=== PATIENT | female | born 1980 | race Caucasian/White ===

== ENCOUNTER → 2018-03-10 10:45 | Outpatient (CLI) | payer OTHER, SELFPAY ==
[2018-03-10 11:38] LABS: Hematocrit 40.4 % (37-47); Hemoglobin 13.3 g/dl (12.0-15.0); Mean Corp Hgb Conc 32.9 g/gl (32-36); Mean Corpuscular Hgb 27.4 pg (27.0-32.0); Mean Corpuscular Volume 83.3 fL (81-99); Mean Platelet Vol. 11.6 fl (6.2-12.0); Platelet Count 246 K/mm3 (150-450); RBC Distribution Width SD 42.5 fl (35.1-43.9); Red Blood Count 4.85 M/mm3 (4.2-5.4); White Blood Count 4.6 K/mm3 (4.4-11.0)
[2018-03-10 11:40] LABS: Scan Indicated on CBC? Y/N NO
[2018-03-10 11:59] LABS: PTHIN 83.7 pg/mL (18.4-80.1)
[2018-03-10 12:00] LABS: Vitamin B12 574 pg/mL (211-911); Vitamin D,25 Hydroxy 19.7 ng/mL (29.95-100.01)
[2018-03-10 12:04] LABS: Homocysteine 6.9 umol/L (3.2-10.7)
[2018-03-10 12:15] LABS: ALB/GLOB Ratio 1.2 RATIO (0.9-2.4); AST(SGOT) 13 U/L (15-37); Alanine Aminotransfer ALT/SGPT 20 U/L (13-56); Albumin, Serum 3.7 g/dL (3.2-5.0); Alkaline Phosphatase 81 U/L (45-117); Anion Gap 6 (5-15); BUN 14 mg/dL (7-18); BUN/Creat Ratio 20.5 RATIO (10-20); CRP < 2.90 mg/L (0.0-3.0); Calcium,Total 8.8 mg/dL (8.5-10.1); Chloride 109 mmol/L (98-107); Cholesterol 165 mg/dL (200); Creatinine, Serum 0.68 mg/dL (0.55-1.02); EST Glomerular Filtration Rate 101 mL/min (>60); Est Glom Filt Rate - Afr Amer 123 mL/min (>60); Ferritin 127 ng/mL (8-252); Globulin 3.1 g/dL (2.2-4.2); Glucose 89 mg/dL (74-106); High Density Lipoprotein 59 mg/dL; Iron 86 ug/dL (50-170); Iron Binding Capacity,Total 295 ug/dL (250-450); Magnesium 2.2 mg/dL (1.6-2.6); Phosphorus 3.7 mg/dL (2.5-4.9); Potassium 3.8 mmol/L (3.5-5.1); Protein, Total 6.8 g/dL (6.4-8.2); Sodium Level 143 mmol/L (136-145); Thyroid Stim Hormone (TSH) 1.32 uIU/mL (0.358-3.74); Triglycerides 76 mg/dL; Very Low Density Lipoprotein 15 mg/dL (5-40)
[2018-03-10 12:57] LABS: Erythrocyte Sedimentation Rate < 1 mm/hr (0-20)
[2018-03-14 11:09] LABS: ANTINUCLEAR ANTIBODIES DIRECT Negative (Negative)
== END ==
PROVIDERS: Family Provider Internal Medicine; PCP Internal Medicine; Visit Provider Internal Medicine
DX: E53.8 Deficiency of other specified B group vitamins (principal); E61.1 Iron deficiency; E55.9 Vitamin D deficiency, unspecified; R53.83 Other fatigue; F41.9 Anxiety disorder, unspecified; K91.2 Postsurgical malabsorption, not elsewhere classified
CPT/HCPCS: 36415; 80053; 80061; 82306; 82607; 82728; 82746; 83090; 83540; 83550; 83735; 83970; 84100; 84443; 84590; 84630; 85027; 85652; 86038; 86140

== ENCOUNTER → 2018-03-17 07:21 | Outpatient (CLI) | payer OTHER, SELFPAY ==
--- NOTE | 2018-03-17 07:24 | CT_ITS ---
STUDY: CT BRAIN WITH AND WITHOUT CONTRAST REASON FOR EXAM: Female, 37 years old. Intractable migraines x3 months that are worsening. History of iron deficiency anemia. RADIATION DOSAGE (If Supplied By Facility): CTDIvol = ( 44.99 ) mGy, DLP = ( 1445.99 ) mGycm TECHNIQUE: Transaxial CT imaging of the brain was performed pre and post contrast administration. The examination was performed with intravenous administration of 50 ml of Isovue 300 contrast material. Individualized dose optimization techniques were used for this CT. COMPARISON: None. FINDINGS: Normal soft tissue structures. Normal calvarium. Normal size ventricles and extra-axial spaces for the patient's age. Normal white matter tracts of the cerebral hemispheres. Normal basal ganglia and thalami. Normal brainstem. Normal cerebellum. There is no intracranial hemorrhage. There are no findings of an acute ischemic infarction. There is a potential air-fluid level within the dependent left maxillary sinus. CT/Brain/Head W/WO Contrast IMPRESSION: No CT evident acute intracranial pathology. Left maxillary nonspecific sinus disease. Air-fluid level may suggest an acute process. Advise clinical correlation. Electronically Signed: Mian Garcia MD at 8:48 EDT , Service support ,
== END ==
PROVIDERS: Family Provider Internal Medicine; PCP Internal Medicine; Visit Provider Internal Medicine
DX: G43.911 Migraine, unspecified, intractable, with status migrainosus (principal)
CPT/HCPCS: 70470; Q9967

== ENCOUNTER → 2018-05-22 14:40 | Outpatient (CLI) | payer OTHER, SELFPAY ==
[2018-05-22 16:36] LABS: Absolute Lymphocyte Count 2.24 X10^3/ul (0.83-4.51); Absolute Neutrophil Count 4.5 X10^3/uL (2.0-7.7); Basophil# 0.04 X10^3/uL; Basophil% 0.5 % (0-1); Eosinophil# 0.25 X10^3/uL; Eosinophils% 3.3 % (0-5); Hematocrit 43.5 % (37-47); Hemoglobin 14.2 g/dl (12.0-15.0); Lymphocyte # 2.24 X10^3/ul (4.0); Lymphocyte % 29.7 % (19-41); Mean Corp Hgb Conc 32.6 g/gl (32-36); Mean Corpuscular Hgb 27.5 pg (27.0-32.0); Mean Corpuscular Volume 84.1 fL (81-99); Mean Platelet Vol. 12.4 fl (6.2-12.0); Monocyte# 0.47 X10^3/uL; Monocyte% 6.2 % (0-10); Neutrophil # 4.53 X10^3/uL (2.7-7.7); Neutrophil % 60.2 % (47-70); Platelet Count 259 K/mm3 (150-450); RBC Distribution Width CV 14.2 % (11.6-14.6); RBC Distribution Width SD 43.2 fl (35.1-43.9); Red Blood Count 5.17 M/mm3 (4.2-5.4); White Blood Count 7.5 K/mm3 (4.4-11.0)
[2018-05-22 16:54] LABS: POSITIVE COUNT NO; POSITIVE DIFFERENTIAL NO; POSITIVE MORPHOLOGY NO
[2018-05-22 17:09] LABS: Vitamin B12 394 pg/mL (211-911); Vitamin D,25 Hydroxy 12.6 ng/mL (29.95-100.01)
[2018-05-22 17:14] LABS: Erythrocyte Sedimentation Rate 2 mm/hr (0-20)
[2018-05-22 17:24] LABS: Homocysteine 6.4 umol/L (3.2-10.7)
[2018-05-22 17:25] LABS: ALB/GLOB Ratio 1.1 RATIO (0.9-2.4); AST(SGOT) 18 U/L (15-37); Alanine Aminotransfer ALT/SGPT 29 U/L (13-56); Albumin, Serum 3.5 g/dL (3.2-5.0); Alkaline Phosphatase 83 U/L (45-117); Anion Gap 7 (5-15); BUN 16 mg/dL (7-18); BUN/Creat Ratio 26.2 RATIO (10-20); CRP < 2.90 mg/L (0.0-3.0); Calcium,Total 8.8 mg/dL (8.5-10.1); Chloride 107 mmol/L (98-107); Cholesterol 149 mg/dL (200); Creatinine, Serum 0.61 mg/dL (0.55-1.02); EST Glomerular Filtration Rate 115 mL/min (>60); Est Glom Filt Rate - Afr Amer 140 mL/min (>60); Ferritin 87 ng/mL (8-252); Globulin 3.3 g/dL (2.2-4.2); Glucose 82 mg/dL (74-106); High Density Lipoprotein 62 mg/dL; Iron 72 ug/dL (50-170); Iron Binding Capacity,Total 316 ug/dL (250-450); Magnesium 1.9 mg/dL (1.6-2.6); PERCENT IRON SATURATION 22.8 % (15.0-55.0); Phosphorus 2.8 mg/dL (2.5-4.9); Potassium 3.6 mmol/L (3.5-5.1); Protein, Total 6.8 g/dL (6.4-8.2); Sodium Level 143 mmol/L (136-145); Thyroid Stim Hormone (TSH) 0.93 uIU/mL (0.358-3.74); Triglycerides 84 mg/dL; Very Low Density Lipoprotein 17 mg/dL (5-40)
[2018-05-22 17:37] LABS: PTHIN 52.6 pg/mL (18.4-80.1)
[2018-05-25 15:59] LABS: ANTINUCLEAR ANTIBODIES DIRECT Negative (Negative)
[2018-05-29 10:02] LABS: Vitamin A, Retinol 34.6 ug/dL (31.2-89.1); Zinc, Plasma or Serum 78 ug/dL (56-134)
== END ==
PROVIDERS: Family Provider Internal Medicine; PCP Internal Medicine; Visit Provider Internal Medicine
DX: E53.8 Deficiency of other specified B group vitamins (principal); E61.1 Iron deficiency; E55.9 Vitamin D deficiency, unspecified; R53.83 Other fatigue; F41.9 Anxiety disorder, unspecified; K91.2 Postsurgical malabsorption, not elsewhere classified
CPT/HCPCS: 36415; 80053; 80061; 82306; 82607; 82728; 82746; 83090; 83540; 83550; 83735; 83970; 84100; 84443; 84590; 84630; 85025; 85652; 86038; 86140

== ENCOUNTER → 2018-07-28 10:49 | Outpatient (CLI) | payer OTHER, SELFPAY ==
[2018-07-28 12:09] LABS: Color, Urine Yellow (Yellow); Glucose, Dipstick Normal (Normal); Ketone-Dipstick 5 mg/dl (Negative); Leukocyte Esterase-Dipstick 25 /ul (Negative); Nitrite-Dipstick Negative (Negative); Occult Blood-Urine Negative /ul (Negative); Protein-Dipstick Negative (Negative); Specific Gravity, Urine 1.025 (1.002-1.030); Urine Bilirubin Dipstick Negative (Negative); Urine Clarity Clear (Clear); Urine Urobilinogen 1 mg/dl (Normal)
[2018-07-28 12:10] LABS: Absolute Lymphocyte Count 2.04 X10^3/ul (0.83-4.51); Basophil# 0.04 X10^3/uL; Basophil% 0.7 % (0-1); Eosinophil# 0.18 X10^3/uL; Eosinophils% 3.2 % (0-5); Hematocrit 41.9 % (37-47); Hemoglobin 13.6 g/dl (12.0-15.0); Lymphocyte # 2.04 X10^3/ul; Lymphocyte % 35.8 % (19-41); Mean Corp Hgb Conc 32.5 g/gl (32-36); Mean Corpuscular Hgb 27.1 pg (27.0-32.0); Mean Corpuscular Volume 83.5 fL (81-99); Mean Platelet Vol. 11.6 fl (6.2-12.0); Monocyte# 0.41 X10^3/uL; Monocyte% 7.2 % (0-10); Neutrophil # 3.02 X10^3/uL (2.7-7.7); Neutrophil % 52.9 % (47-70); Platelet Count 214 K/mm3 (150-450); RBC Distribution Width CV 13.9 % (11.6-14.6); RBC Distribution Width SD 42.1 fl (35.1-43.9); Red Blood Count 5.02 M/mm3 (4.2-5.4); White Blood Count 5.7 K/mm3 (4.4-11.0)
[2018-07-28 12:24] LABS: COTININE Drug Screen Negative (<200 ng/mL)
[2018-07-28 12:28] LABS: AST(SGOT) 19 U/L (15-37); Alanine Aminotransfer ALT/SGPT 26 U/L (13-56); Albumin, Serum 3.4 g/dL (3.2-5.0); Alkaline Phosphatase 74 U/L (45-117); Anion Gap 8 (5-15); BUN 17 mg/dL (7-18); BUN/Creat Ratio 24.4 RATIO (10-20); Calcium,Total 8.5 mg/dL (8.5-10.1); Chloride 106 mmol/L (98-107); Cholesterol 159 mg/dL (200); EST Glomerular Filtration Rate 99 mL/min (>60); Est Glom Filt Rate - Afr Amer 120 mL/min (>60); Globulin 3.3 g/dL (2.2-4.2); Glucose 86 mg/dL (74-106); High Density Lipoprotein 61 mg/dL; LDH 152 U/L (84-246); Phosphorus 3.6 mg/dL (2.5-4.9); Potassium 3.9 mmol/L (3.5-5.1); Protein, Total 6.7 g/dL (6.4-8.2); Sodium Level 142 mmol/L (136-145); Triglycerides 70 mg/dL; Uric Acid 3.6 mg/dL (2.6-6.0); Very Low Density Lipoprotein 14 mg/dL (5-40)
== END ==
PROVIDERS: Family Provider Internal Medicine; PCP Internal Medicine; Visit Provider Family Medicine
DX: Z00.00 Encounter for general adult medical examination without abnormal findings (principal)
CPT/HCPCS: 80307

== ENCOUNTER → 2018-08-25 12:36 | Outpatient (CLI) | payer OTHER, SELFPAY ==
[2018-08-25 13:08] LABS: Erythrocyte Sedimentation Rate 4 mm/hr (0-20)
[2018-08-25 13:59] LABS: Vitamin B12 337 pg/mL (211-911); Vitamin D,25 Hydroxy 16.9 ng/mL (29.95-100.01)
[2018-08-25 14:29] LABS: CRP < 2.90 mg/L (0.0-3.0); Ferritin 82 ng/mL (8-252); Iron 73 ug/dL (50-170); Iron Binding Capacity,Total 308 ug/dL (250-450); Rheumatoid Factor < 10.0 IU/mL (<15)
[2018-08-29 08:36] LABS: ANTINUCLEAR ANTIBODIES DIRECT Negative (Negative)
== END ==
PROVIDERS: Family Provider Internal Medicine; PCP Internal Medicine; Visit Provider Family Medicine
DX: E61.1 Iron deficiency (principal); E53.8 Deficiency of other specified B group vitamins; E55.9 Vitamin D deficiency, unspecified; M79.10 Myalgia, unspecified site; M25.50 Pain in unspecified joint; Z98.84 Bariatric surgery status
CPT/HCPCS: 36415; 82306; 82607; 82728; 82746; 83540; 83550; 85652; 86038; 86140; 86431

== ENCOUNTER → 2019-01-19 10:25 | Outpatient (CLI) | payer OTHER, SELFPAY ==
[2019-01-19 11:01] LABS: Absolute Lymphocyte Count 2.67 X10^3/ul (0.83-4.51); Absolute Neutrophil Count 3.3 X10^3/uL (2.0-7.7); Basophil# 0.05 X10^3/uL; Basophil% 0.7 % (0-1); Eosinophil# 0.19 X10^3/uL; Eosinophils% 2.8 % (0-5); Lymphocyte # 2.67 X10^3/ul (4.0); Lymphocyte % 39.9 % (19-41); Mean Corp Hgb Conc 31.8 g/gl (32-36); Mean Corpuscular Hgb 27.1 pg (27.0-32.0); Mean Corpuscular Volume 85.3 fL (81-99); Mean Platelet Vol. 11.1 fl (6.2-12.0); Monocyte# 0.46 X10^3/uL; Monocyte% 6.9 % (0-10); Neutrophil # 3.32 X10^3/uL (2.7-7.7); Neutrophil % 49.7 % (47-70); Platelet Count 232 K/mm3 (150-450); RBC Distribution Width CV 13.8 % (11.6-14.6); RBC Distribution Width SD 42.9 fl (35.1-43.9); Red Blood Count 5.16 M/mm3 (4.2-5.4); White Blood Count 6.7 K/mm3 (4.4-11.0)
[2019-01-19 11:04] LABS: POSITIVE COUNT NO; POSITIVE DIFFERENTIAL NO; POSITIVE MORPHOLOGY NO
[2019-01-19 11:38] LABS: AST(SGOT) 15 U/L (15-37); Alanine Aminotransfer ALT/SGPT 23 U/L (13-56); Albumin, Serum 3.5 g/dL (3.2-5.0); Alkaline Phosphatase 78 U/L (45-117); Anion Gap 8 (5-15); BUN 15 mg/dL (7-18); BUN/Creat Ratio 21.9 RATIO (10-20); Calcium,Total 8.7 mg/dL (8.5-10.1); Chloride 105 mmol/L (98-107); Creatinine, Serum 0.69 mg/dL (0.55-1.02); EST Glomerular Filtration Rate 101 mL/min (>60); Est Glom Filt Rate - Afr Amer 122 mL/min (>60); Ferritin 86 ng/mL (8-252); Globulin 3.4 g/dL (2.2-4.2); Glucose 87 mg/dL (74-106); Iron 70 ug/dL (50-170); Potassium 4.1 mmol/L (3.5-5.1); Protein, Total 6.9 g/dL (6.4-8.2); Sodium Level 141 mmol/L (136-145)
== END ==
PROVIDERS: Family Provider Family Medicine; PCP Family Medicine; Referring Provider Family Medicine; Visit Provider Family Medicine
DX: D64.9 Anemia, unspecified (principal); R51 Headache
CPT/HCPCS: 36415; 80053; 82728; 83540; 85025

== ENCOUNTER → 2019-07-26 15:16 | Outpatient (CLI) | payer OTHER, SELFPAY ==
--- NOTE | 2019-07-26 15:33 | BI_ITS ---
MAMMOGRAPHY - BILATERAL SCREENING REASON FOR EXAM: Female, 38 years old. Routine annual screening examination. PERTINENT HISTORY: Non-contributory. 2 month history of intermittent right breast tenderness. TECHNIQUE: Digital bilateral breast tim (3D mammographic acquisition) in the CC and MLO projections. 2-D mediolateral oblique (MLO) and craniocaudad (CC) views of both breasts were obtained. CAD: Full Field Digital Mammography with Computer Added Detection was performed. COMPARISON: Comparison is made with prior study of February 14, 2013. FINDINGS: Breast Composition: The breasts are heterogeneously dense, which may obscure small masses. There are no dominant masses or suspicious calcifications. Stable benign-appearing bilateral axillary lymph nodes. No other significant abnormalities are identified. There has been no significant change since the prior study. BI/SCREEN MAMM (CAD) W/TIM BILAT IMPRESSION: Stable bilateral screening mammogram. Yearly follow-up mammogram recommended. (A) ASSESSMENT CATEGORY: BIRADS Category 2: Benign. A letter regarding these results will be sent to the patient by the facility within 30 days. Approximately 10% of breast cancers are not detected by mammography. A normal mammogram should not delay biopsy of a clinically suspicious abnormality. [id number] Electronically Signed: Casimiro Mcarthur, at 8:07 EDT , Service support ,
[2019-07-26 16:36] LABS: Ferritin 62 ng/mL (8-252); Iron 52 ug/dL (50-170); Iron Binding Capacity,Total 306 ug/dL (250-450); Vitamin B12 553 pg/mL (211-911); Vitamin D,25 Hydroxy 46.5 ng/mL (29.95-100.01)
== END ==
PROVIDERS: Family Provider Family Medicine; PCP Family Medicine; Referring Provider Family Medicine; Visit Provider Family Medicine
DX: Z12.31 Encounter for screening mammogram for malignant neoplasm of breast (principal); E55.9 Vitamin D deficiency, unspecified; E53.8 Deficiency of other specified B group vitamins; D50.9 Iron deficiency anemia, unspecified
CPT/HCPCS: 36415; 77063; 77067; 82306; 82607; 82728; 82746; 83540; 83550

== ENCOUNTER → 2020-01-16 09:48 | Outpatient (CLI) | payer OTHER, SELFPAY ==
[2020-01-16 12:15] LABS: Absolute Lymphocyte Count 2.03 X10^3/uL (0.83-4.51); Absolute Neutrophil Count 3.4 X10^3/uL (2.0-7.7); Basophil# 0.06 X10^3/uL; Eosinophil# 0.23 X10^3/uL; Eosinophils% 3.7 % (0-5); Hemoglobin 14.4 g/dL (12.0-15.0); Lymphocyte # 2.03 X10^3/ul (4.0); Lymphocyte % 32.6 % (19-41); Mean Corpuscular Hgb 26.6 pg (27.0-32.0); Mean Corpuscular Volume 83.2 fL (81-99); Mean Platelet Vol. 11.8 fl (6.2-12.0); Monocyte# 0.49 X10^3/uL; Monocyte% 7.9 % (0-10); NRBC Flagged by Analyzer 0 % (0-5); Neutrophil # 3.39 X10^3/uL (2.7-7.7); Neutrophil % 54.5 % (47-70); Platelet Count 263 K/mm3 (150-450); RBC Distribution Width SD 41.9 fl (35.1-43.9); Red Blood Count 5.41 M/mm3 (4.2-5.4); White Blood Count 6.2 K/mm3 (4.4-11.0)
[2020-01-16 12:29] LABS: Vitamin B12 495 pg/mL (211-911)
[2020-01-16 12:33] LABS: Ferritin 82 ng/mL (8-252); Free T3 2.4 pg/mL (2.18-3.98); Iron 122 ug/dL (50-170); T4 Free Direct 0.93 ng/dL (0.76-1.46); Thyroid Stim Hormone (TSH) 1.18 uIU/mL (0.358-3.74)
== END ==
PROVIDERS: PCP Family Medicine; Visit Provider Family Medicine
DX: D50.9 Iron deficiency anemia, unspecified (principal); E53.8 Deficiency of other specified B group vitamins; Z98.84 Bariatric surgery status
CPT/HCPCS: 36415; 82607; 82728; 83540; 84439; 84443; 84481; 85025

== ENCOUNTER → 2020-08-04 08:12 | Outpatient (CLI) | payer OTHER, SELFPAY ==
--- NOTE | 2020-08-04 08:15 | BI_ITS ---
MAMMOGRAPHY - BILATERAL SCREENING REASON FOR EXAM: Female, 39 years old. Routine annual screening examination. PERTINENT HISTORY: Non-contributory. TECHNIQUE: Digital bilateral breast tim (3D mammographic acquisition) in the CC and MLO projections. 2-D mediolateral oblique (MLO) and craniocaudad (CC) views of both breasts were obtained. CAD: Full Field Digital Mammography with Computer Added Detection was performed. COMPARISON: Comparison is made with prior study dated 07/26/2019 and 02/14/2013. FINDINGS: Breast Composition: The breasts are heterogeneously dense, which may obscure small masses. There are no dominant masses or suspicious calcifications. Stable benign-appearing bilateral axillary lymph nodes. No other significant abnormalities are identified. There has been no significant change since the prior study. BI/SCREEN MAMM (CAD) W/TIM BILAT IMPRESSION: Stable bilateral screening mammogram. Yearly follow-up mammogram recommended. (A) ASSESSMENT CATEGORY: BIRADS Category 2: Benign. A letter regarding these results will be sent to the patient by the facility within 30 days. Approximately 10% of breast cancers are not detected by mammography. A normal mammogram should not delay biopsy of a clinically suspicious abnormality. [id number] Electronically Signed: Casimiro Mcarthur, at 9:47 EDT , Service support ,
== END ==
PROVIDERS: PCP Family Medicine; Referring Provider Family Medicine; Visit Provider Family Medicine
DX: Z12.31 Encounter for screening mammogram for malignant neoplasm of breast (principal)
CPT/HCPCS: 77063; 77067

== ENCOUNTER → 2020-09-03 13:23 | Outpatient (CLI) | payer OTHER, SELFPAY ==
--- NOTE | 2020-09-03 13:25 | RAD_ITS ---
HISTORY: BRONCHITIS. SOB,CHEST TIGHTNESS, HORSE VOICE ADDITIONAL HISTORY: None provided. COMPARISON: None EXAMINATION/TECHNIQUE: XR Chest 2 Views Number of images including paperwork: 2 FINDINGS: LUNGS AND PLEURA: No consolidation, mass or pleural effusion. CARDIAC SILHOUETTE: Unremarkable. MEDIASTINUM AND KARAN: Unremarkable. UPPER ABDOMEN: Left upper quadrant surgical clips. SKELETON AND SOFT TISSUES: No acute findings. Degenerative changes. OTHER DEVICES AND HARDWARE: None. RAD/Chest PA and Lateral IMPRESSION: No acute cardiopulmonary abnormality. at 0739 Reported and signed by: Laurie Mendoza MD Electronically Signed: Laurie Mendoza MD at 7:39 EDT Tel , Service support ,
== END ==
PROVIDERS: PCP Family Medicine; Referring Provider Family Medicine; Visit Provider Family Medicine
DX: R06.02 Shortness of breath (principal); R07.89 Other chest pain
CPT/HCPCS: 71046

== ENCOUNTER → 2020-09-05 11:55 | Outpatient (CLI) | payer OTHER, SELFPAY ==
[2020-09-05 15:16] LABS: Absolute Lymphocyte Count 2.65 X10^3/uL (0.83-4.51); Absolute Neutrophil Count 3.2 X10^3/uL (2.0-7.7); Basophil# 0.06 X10^3/uL; Basophil% 0.9 % (0-1); Eosinophil# 0.39 X10^3/uL; Eosinophils% 5.8 % (0-5); Hematocrit 45.6 % (37-47); Lymphocyte # 2.65 X10^3/ul (4.0); Lymphocyte % 39.1 % (19-41); Mean Corp Hgb Conc 30.7 g/dL (32-36); Mean Corpuscular Hgb 25.9 pg (27.0-32.0); Mean Corpuscular Volume 84.4 fL (81-99); Mean Platelet Vol. 12.5 fl (6.2-12.0); Monocyte# 0.47 X10^3/uL; Monocyte% 6.9 % (0-10); NRBC Flagged by Analyzer 0 % (0-5); Neutrophil # 3.19 X10^3/uL (2.7-7.7); Neutrophil % 47.2 % (47-70); Platelet Count 299 K/mm3 (150-450); RBC Distribution Width CV 14.3 % (11.6-14.6); RBC Distribution Width SD 43.8 fl (35.1-43.9); White Blood Count 6.8 K/mm3 (4.4-11.0)
[2020-09-05 15:43] LABS: CRP < 2.90 mg/L (0.0-3.0)
[2020-09-05 15:48] LABS: D-Dimer Quantitative (DVT/PE) 0.39 FEU/ug/m (0.27-0.49)
[2020-09-05 16:19] LABS: Erythrocyte Sedimentation Rate 12 mm/hr (0-20)
== END ==
PROVIDERS: PCP Family Medicine; Visit Provider Family Medicine
DX: R06.00 Dyspnea, unspecified (principal); R06.2 Wheezing
CPT/HCPCS: 36415; 85025; 85379; 85652; 86140

== ENCOUNTER → 2020-09-15 06:46 | Outpatient (CLI) | payer OTHER, SELFPAY ==
--- NOTE | 2020-09-15 15:30 | PFTCOMP_ITS ---
COMPLETE PULMONARY FUNCTION TEST INTERPRETATION Brief HPI: Patient is a 40 year old female, currently under the care of Dr. Gray, who presents to [facility] for complete pulmonary function tests secondary to diagnosis of wheezing and cough. Respiratory therapist reports good effort and reproducible results. Interpretation: Forced expiration spirometry shows a mild large airways obstructive ventilatory defect with an FEV1 of 117% predicted. There is a significant bronchodilator response in FEV1 by strict ATS criteria. Spirograms are of good quality and plateau slowly, indicating slowly emptying areas of the lungs. The respiratory flow volume loop shows decreased expiratory flow rates at all lung volumes consistent with airway obstruction. Lung volumes by body plethysmography show a normal total lung capacity at 4.45 L, 96% predicted. All other lung volumes are within normal limits. Diffusion capacity by carbon monoxide is normal at 107% predicted. The airway resistance is elevated. No previous pulmonary function tests were available for review. Impression: Fully reversible mild large airways obstructive ventilatory defect and a pattern consistent with asthma
== END ==
PROVIDERS: PCP Family Medicine; Referring Provider Family Medicine; Visit Provider Family Medicine
DX: R06.2 Wheezing (principal); R06.00 Dyspnea, unspecified
CPT/HCPCS: 94060; 94726; 94729

== ENCOUNTER 2021-02-17 13:00 | Outpatient (RCR) | payer OTHER, SELFPAY | END 2021-02-18 23:59 | LOC: NS 13:00 | PROVIDERS: PCP Family Medicine; Visit Provider Family Medicine | DX: E66.9 Obesity, unspecified (principal) | CPT/HCPCS: 97802; 97803 ==

== ENCOUNTER 2021-03-03 11:54 | Outpatient (RCR) | payer OTHER, SELFPAY | END 2021-03-20 23:59 | LOC: NS 11:54 | PROVIDERS: PCP Family Medicine; Visit Provider Family Medicine | DX: Z71.3 Dietary counseling and surveillance (principal); E66.9 Obesity, unspecified | CPT/HCPCS: 97803 ==

== ENCOUNTER 2021-04-02 13:59 | Outpatient (RCR) | payer OTHER, SELFPAY | END 2021-04-20 23:59 | LOC: NS 13:59 | PROVIDERS: PCP Family Medicine; Visit Provider Family Medicine | DX: Z71.3 Dietary counseling and surveillance (principal); E66.9 Obesity, unspecified | CPT/HCPCS: 97803 ==

== ENCOUNTER 2021-04-22 15:42 | Outpatient (RCR) | payer OTHER, SELFPAY | END 2021-05-20 23:59 | LOC: NS 15:42 | PROVIDERS: PCP Family Medicine; Visit Provider Family Medicine | DX: Z71.3 Dietary counseling and surveillance (principal); E66.9 Obesity, unspecified | CPT/HCPCS: 97803 ==

== ENCOUNTER → 2021-09-10 10:32 | Outpatient (CLI) | payer OTHER, SELFPAY ==
[2021-09-11 11:14] LABS: Ferritin 44 ng/mL (8-252); Free T3 2.6 pg/mL (2.18-3.98); Iron 92 ug/dL (50-170); T4 Free Direct 0.97 ng/dL (0.76-1.46); Thyroid Stim Hormone (TSH) 1.46 uIU/mL (0.358-3.74)
== END ==
PROVIDERS: PCP Family Medicine; Visit Provider Family Medicine
DX: E03.9 Hypothyroidism, unspecified (principal); E53.8 Deficiency of other specified B group vitamins; R53.83 Other fatigue; Z51.81 Encounter for therapeutic drug level monitoring; E55.9 Vitamin D deficiency, unspecified
CPT/HCPCS: 36415; 82728; 83540; 84439; 84443; 84481

== ENCOUNTER → 2021-09-28 09:08 | Outpatient (CLI) | payer OTHER, SELFPAY ==
[2021-09-28 10:29] LABS: Vitamin B12 578 pg/mL (211-911); Vitamin D,25 Hydroxy 21.8 ng/mL
== END ==
PROVIDERS: PCP Family Medicine; Referring Provider Family Medicine; Visit Provider Family Medicine
DX: E53.8 Deficiency of other specified B group vitamins (principal); D64.9 Anemia, unspecified; E55.9 Vitamin D deficiency, unspecified
CPT/HCPCS: 36415; 82306; 82607

== ENCOUNTER 2021-12-10 06:36 | Emergency (ER) | payer OTHER, SELFPAY ==
[2021-12-10 06:37] VITALS: BP 116/61; PULSE 85; RESP 18; TEMP 35.7; O2SAT 96; BMI 47.5
--- NOTE | 2021-12-10 06:52 | EDS_ITS ---
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 She has been able to bear weight since this happened. No other injuries. Tetanus Immunization: Unknown [facility] Medical History Anemia Chest pain Difficulty balancing Fatigue Limb weakness Migraines SOB (shortness of breath) Home Medications iyrflacedche-Af-vupp-minerals 2 ea PO DAILY 10/25/16 [History Last Taken Unknown] vit S7-lhfnkk-V8-X10-zlrzrkin 236 ml SL DAILY 10/25/16 [History Last Taken Unknown] Iron Fe 625 mcg PO DAILY 03/17/17 [History Last Taken Unknown] budesonide-formoterol [Symbicort] 1 puff INHALATION BID 12/10/21 [History Last Taken Unknown] dextroamphetamine-amphetamine [Adderall XR] 20 mg PO DAILY 12/10/21 [History Last Taken Unknown] duloxetine 30 mg PO DAILY 12/10/21 [History Last Taken Unknown] Allergy/AdvReac Type Severity Reaction Status Date / Time sulfamethoxazole Allergy Hives Verified 12/10/21 06:43 [From ] trimethoprim [From ] Allergy Hives Verified 12/10/21 06:43 Family History (Updated 02/24/18 @ 08:37 by Rosanna Villalobos) Other Arthritis Autoimmune disease Cancer Diabetes Surgical History Gastric bypass status for obesity Hx of section Hx of hysterectomy Social History Smoking Status: Never smoker alcohol intake: never ROS ROS ED Constitutional Constitutional ED: Denies chills or fever(s) Musculoskeletal Musculoskeletal: Reports extremity pain; Denies neck pain Integumentary Reports Abrasions; Denies rash or wounds Neurologic Neurologic: Denies paresthesias or weakness EXAM Physical Exam Const Vital Signs: 12/10/21 06:37 12/10/21 06:42 Temperature 96.2 F L Temperature Source Temporal Pulse Rate 85 Respiratory Rate 18 Respiratory Effort Normal Blood Pressure 116/61 Blood Pressure Mean 79 Pulse Ox 96 Oxygen Delivery Method Room Air Positive well nourished and well developed General Appearance ED: well developed and NAD Neck full ROM and supple Back/Spine normal ROM and normal to inspection Extremity full ROM Extremity Narrative: For range of motion throughout the knee and the ankle right lower extremity. All ligaments intact and stable. Tender at the abrasions see below, no significant bony tenderness. No deformities. No edema/localized swelling. Neuro oriented x3, no focal motor deficits and no sensory deficits noted Sensorium / Orientation: alert Psych mental status grossly normal and thought process normal Skin no wounds Skin Narrative: Abrasion anteromedial right lower leg, and another abrasion anterior aspect of the right medial malleolus. No lacerations or other wounds. Rashes: no rashes MDM MDM MDM Narrative Medical decision making narrative: 3 view x-rays of the right tibia and fibula were obtained, and on my interpretation negative for any acute bony injury or FB. Patient's abrasions were cleansed and dressed with bacitracin, she is reassured, she was offered Tylenol or ibuprofen and declined, I do not think she needs any work restrictions at this time and she is okay with that. Follow-up as needed. Discharge Plan Triage Chief Complaint: Fall ED Provider: Inocencio Rios Dx/Rx/DC Orders Clinical Impression: Abrasion of knee, right, Abrasion of right ankle Instructions: ED Abrasion Prescriptions: No Action isrxwwfachem-Sa-jwua-minerals 1 EACH tablet 2 ea PO DAILY RF: 0 vit Z9-mobfms-[id number]-jiucjsct 59 ML liquid 236 ml SL DAILY RF: 0 Iron Fe 625 mcg PO DAILY RF: 0 dextroamphetamine-amphetamine [Adderall XR] 20 mg Capsule,Extended Release 24hr 20 mg PO DAILY RF: 0 duloxetine 30 mg Capsule, Delayed Rel Sprinkle 30 mg PO DAILY RF: 0 budesonide-formoterol [Symbicort] 80-4.5 mcg/actuation Hfa Aerosol Inhaler 1 puff INHALATION BID RF: 0 Primary Care Provider: Brianda Nolan Referrals: Health, employee [Other] - As Needed Brianda Nolan DO [Primary Care Provider] - Disposition Disposition: Home, Self Care
--- NOTE | 2021-12-10 06:52 | RAD_ITS ---
STUDY: X-RAY - RIGHT TIBIA AND FIBULA REASON FOR EXAM: Injury of the right lower leg with ankle and knee pain. TECHNIQUE: 2 view(s) of the tibia and fibula were obtained. COMPARISON: None. FINDINGS: Normal visualized tibia. Normal visualized fibula. The soft tissue structures are unremarkable. RAD/Tibia & Fibula 2 Views IMPRESSION: Unremarkable x-ray examination of the right tibia and fibula. Electronically Signed: Ag Crum MD at 7:38 EST Tel , Service support ,
== END 2021-12-10 07:24 | disposition home or self-care (01) ==
LOC: ED 07:18
PROVIDERS: Emergency Provider Emergency Medicine; PCP Family Medicine; Visit Provider Emergency Medicine
DX: S80.211A Abrasion, right knee, initial encounter (principal); S90.511A Abrasion, right ankle, initial encounter; W00.0XXA Fall on same level due to ice and snow, initial encounter; Y93.01 Activity, walking, marching and hiking; Y92.9 Unspecified place or not applicable
CPT/HCPCS: 73590; 99282

== ENCOUNTER 2022-03-08 08:00 | Outpatient (CLI) | payer OTHER, SELFPAY ==
--- NOTE | 2022-03-08 08:02 | BI_ITS ---
MAMMOGRAPHY - BILATERAL SCREENING 3-D TOMOSYNTHESIS REASON FOR EXAM: Female, 41 years old. SCREENING PERTINENT HISTORY: No significant family history. TECHNIQUE: 2-D mammograms and 3-D Tomosynthesis of the breast (s) were performed. CAD was performed. COMPARISON: 08/04/2020 FINDINGS: The breast composition is heterogeneously dense that can obscure small breast masses. Scattered benign calcifications are seen. No dense spiculated masses or suspicious microcalcifications are identified. No architectural distortion is identified. There is no skin thickening or retraction. There has been no significant change since the prior study. BI/SCRN MAMM (CAD)W/TIM BILAT IMPRESSION: No mammographic signs of malignancy. Routine yearly mammograms recommended. ASSESSMENT CATEGORY: BIRADS Category 1: Negative. A letter regarding these results will be sent to the patient by the facility within 30 days. FOLLOW UP RECOMMENDATION: Yearly follow up mammogram recommended. (A) Approximately 10% of breast cancers are not detected by mammography. A normal mammogram should not delay biopsy of a clinically suspicious abnormality. Electronically Signed: Harris Villalobos MD at 10:36 EDT ,
== END 2022-03-08 23:59 | disposition home or self-care (01) ==
LOC: OPBI 08:00
PROVIDERS: PCP Family Medicine; Visit Provider Family Medicine
DX: Z12.31 Encounter for screening mammogram for malignant neoplasm of breast (principal)
CPT/HCPCS: 77063; 77067

== ENCOUNTER → 2022-07-21 | Outpatient (CLI) | payer OTHER, SELFPAY ==
--- NOTE | 2022-07-21 15:39 | RAD_ITS ---
EXAM: XR LEFT ANKLE COMPLETE, 3 OR MORE VIEWS CLINICAL INDICATION: CONTUSION OF LEFT ANKLE INJURY TO LEFT ANKLE. PAIN TO LATERAL ASPECT OF ANKLE. X1 WEEK TECHNIQUE: Frontal, lateral and oblique views of the left ankle. This report was created using leemail report generation technology. COMPARISON: None. FINDINGS: BONES/JOINTS: There is a calcaneal spur. No acute fracture. No subluxation. Normal alignment. Preservation of the joint space. No sclerotic or destructive changes observed. SOFT TISSUES: Unremarkable. No soft tissue swelling or gas. No radiopaque foreign body. RAD/Ankle min 3 Views IMPRESSION: There is a calcaneal spur. Electronically Signed: Constantin Cook MD at 19:11 EDT ,
== END | disposition home or self-care (01) ==
LOC: RAD 15:18
PROVIDERS: PCP Family Medicine; Visit Provider Physician Assistant
DX: S90.02XA Contusion of left ankle, initial encounter (principal)
CPT/HCPCS: 73610

== ENCOUNTER 2022-10-13 13:06 | Outpatient (CLI) | payer OTHER, SELFPAY ==
[2022-10-13 13:29] LABS: Absolute Lymphocyte Count 2.68 X10^3/uL (0.83-4.51); Absolute Neutrophil Count 4.3 X10^3/uL (2.0-7.7); Basophil# 0.07 X10^3/uL; Basophil% 0.9 % (0-1); Eosinophil# 0.36 X10^3/uL; Eosinophils% 4.6 % (0-5); Hematocrit 46.2 % (37-47); Hemoglobin 14.3 g/dL (12.0-15.0); Lymphocyte # 2.68 X10^3/ul (0.83-4.51); Lymphocyte % 34.3 % (19-41); Mean Corpuscular Hgb 26.2 pg (27.0-32.0); Mean Corpuscular Volume 84.6 fL (81-99); Monocyte# 0.41 X10^3/uL; Monocyte% 5.2 % (0-10); NRBC Flagged by Analyzer 0 % (0-5); Neutrophil # 4.28 X10^3/uL (2.7-7.7); Neutrophil % 54.9 % (47-70); Platelet Count 326 K/mm3 (150-450); RBC Distribution Width CV 13.8 % (11.6-14.6); RBC Distribution Width SD 42.4 fl (35.1-43.9); Red Blood Count 5.46 M/mm3 (4.2-5.4); White Blood Count 7.8 K/mm3 (4.4-11.0)
[2022-10-13 13:54] LABS: Vitamin B12 526 pg/mL (211-911); Vitamin D,25 Hydroxy 29.5 ng/mL
[2022-10-13 13:59] LABS: Iron Binding Capacity,Total 361 ug/dL (250-450); T4 Free Direct 0.94 ng/dL (0.76-1.46); Thyroid Stim Hormone (TSH) 1.13 uIU/mL (0.358-3.74)
== END 2022-10-13 23:59 | disposition home or self-care (01) ==
LOC: LAB 13:07
PROVIDERS: PCP Family Medicine; Visit Provider Obstetrics & Gynecology
DX: R53.83 Other fatigue (principal); N95.1 Menopausal and female climacteric states
CPT/HCPCS: 36415; 82306; 82607; 83550; 84439; 84443; 85025

== ENCOUNTER → 2023-04-20 | Outpatient (CLI) | payer OTHER, SELFPAY ==
--- NOTE | 2023-04-20 08:06 | BI_ITS ---
MAMMOGRAPHY - BILATERAL SCREENING REASON FOR EXAM: Female, 42 years old. Routine annual screening examination. PERTINENT HISTORY: Non-contributory. TECHNIQUE: Digital bilateral breast tim (3D mammographic acquisition) in the CC and MLO projections. 2-D mediolateral oblique (MLO) and craniocaudad (CC) views of both breasts were obtained. CAD: Full Field Digital Mammography with Computer Added Detection was performed. COMPARISON: Comparison is made with prior study dated March 08, 2022 and August 04, 2020. FINDINGS: Breast Composition: The breasts are heterogeneously dense, which may obscure small masses. There are no dominant masses or suspicious calcifications. Stable benign-appearing bilateral axillary lymph nodes. No other significant abnormalities are identified. There has been no significant change since the prior study. BI/SCRN MAMM (CAD)W/TIM BILAT IMPRESSION: Stable bilateral screening mammogram. Yearly follow-up mammogram recommended. (A) ASSESSMENT CATEGORY: BIRADS Category 2: Benign. A letter regarding these results will be sent to the patient by the facility within 30 days. Approximately 10% of breast cancers are not detected by mammography. A normal mammogram should not delay biopsy of a clinically suspicious abnormality. [id number] Electronically Signed: Casimiro Mcarthur MD at 10:11 EDT ,
== END | disposition home or self-care (01) ==
PROVIDERS: PCP Family Medicine; Referring Provider Obstetrics & Gynecology; Visit Provider Obstetrics & Gynecology
DX: Z12.31 Encounter for screening mammogram for malignant neoplasm of breast (principal)
CPT/HCPCS: 77063; 77067

== ENCOUNTER → 2023-05-05 | Outpatient (CLI) | payer OTHER, SELFPAY ==
--- NOTE | 2023-05-05 08:08 | EKG12_ITS ---
Test Reason : PRE MEDICATION Blood Pressure : / mmHG Vent. Rate : 085 BPM Atrial Rate : 085 BPM P-R Int : 138 ms QRS Dur : 080 ms QT Int : 356 ms P-R-T Axes : 066 007 020 degrees QTc Int : 423 ms Normal sinus rhythm Normal ECG Confirmed by RANDY CABELLO, JUSTIN ([id number]), food expeditor ELLIE HARMON ([id number]) on 05/06/2023 10:15:22 A M Referred By: Rukhsana Ghosh Confirmed By:KALYAN PADILLA MD
== END | disposition home or self-care (01) ==
LOC: PSN 08:07
PROVIDERS: PCP Family Medicine; Referring Provider Obstetrics & Gynecology; Visit Provider Obstetrics & Gynecology
DX: E66.01 Morbid (severe) obesity due to excess calories (principal)
CPT/HCPCS: 93005

== ENCOUNTER → 2023-05-09 | Outpatient (CLI) | payer OTHER, SELFPAY ==
[2023-05-09 08:59] LABS: Hemoglobin A1c 5.5 % (3.8-5.6)
[2023-05-09 09:19] LABS: ALB/GLOB Ratio 0.9 RATIO (0.9-2.4); AST(SGOT) 13 U/L (15-37); Alanine Aminotransfer ALT/SGPT 24 U/L (13-56); Albumin, Serum 3.2 g/dL (3.2-5.0); Alkaline Phosphatase 97 U/L (45-117); Anion Gap 6 (5-15); BUN 13 mg/dL (7-18); Calcium,Total 8.9 mg/dL (8.5-10.1); Chloride 106 mmol/L (98-107); Cholesterol 166 mg/dL (200); Creatinine, Serum 0.81 mg/dL (0.55-1.02); EST Glomerular Filtration Rate 81 mL/min (>60); Est Glom Filt Rate - Afr Amer 98 mL/min (>60); Globulin 3.7 g/dL (2.2-4.2); Glucose 93 mg/dL (74-106); High Density Lipoprotein 65 mg/dL; Protein, Total 6.9 g/dL (6.4-8.2); Sodium Level 139 mmol/L (136-145); Triglycerides 90 mg/dL; Very Low Density Lipoprotein 18 mg/dL (5-40)
[2023-05-12 15:08] LABS: Vitamin B1, Thiamine 114.1 nmol/L (66.5-200.0)
== END | disposition home or self-care (01) ==
LOC: LAB 07:52
PROVIDERS: PCP Family Medicine; Referring Provider Obstetrics & Gynecology; Visit Provider Obstetrics & Gynecology
DX: E66.01 Morbid (severe) obesity due to excess calories (principal); Z68.41 Body mass index [BMI] 40.0-44.9, adult
CPT/HCPCS: 36415; 80053; 80061; 82746; 83036; 84425

== ENCOUNTER 2024-05-16 11:03 | Day surgery (SDC) | payer OTHER, SELFPAY ==
[2024-05-16] VITALS (8 sets, daily range): BP systolic 106–130; BP diastolic 25–87; PULSE 69–78; RESP 16–18; TEMP 36.2–37.1; O2SAT 94–100; BMI 44.7
[2024-05-16] MEDS: Lactated Ringers 1,000 ML 15 ML IV (11:42)
--- NOTE | 2024-05-16 12:19 | PRE.ANES_ITS ---
ASA Classification* ASA Classification ASA Classification: 2 Assessment & Plan Anesthesia* Anesthesia Assessment Anesthesia Assessment: Discussed sedation and/or anesthesia options, risks, benefits, and alternatives with patient/parents/legal guardian/POA. Questions invited. The patient/parents/legal guardian/POA seems to understand and agrees to proceed with anesthesia plan. Reviewed the physical assessment, medical history, allergy history and patient home medications list prior to surgery/procedure/anesthetic and documented any changes. Performed airway and anesthesia risk assessments. Procedural Plan Procedural Plan:: Proceed w/ Anesthesia plan Anesthesia Type Anesthesia Type: MAC History Source History Obtained from:: Patient and Chart Anesthesia Focused Assessment* Temperature: 98.7 F Pulse Rate: 77 Blood Pressure: 130/87 Respiratory Rate: 18 Pulse Ox: 99 Oxygen Delivery Method: Room Air Airway Assessment Mouth opens: >3 cm Mallampati Score: I Teeth Condition: Intact Neck Range of motion (ROM): Full ROM Pertinent Findings EKG Pertinent Findings:: May 05, 2023. Normal sinus rhythm. Focused Labs Anesthesia Preop lab: CBC WBC 7.8 K/mm3 (4.4-11.0) 10/13/22 13:10 RBC 5.46 M/mm3 (4.2-5.4) H 10/13/22 13:10 Hgb 14.3 g/dL (12.0-15.0) 10/13/22 13:10 Hct 46.2 % (37-47) 10/13/22 13:10 Plt Count 326 K/mm3 (150-450) 10/13/22 13:10 CHEMISTRY Potassium 4.0 mmol/L (3.5-5.1) 05/09/23 07:54 Sodium 139 mmol/L (136-145) 05/09/23 07:54 Magnesium 1.9 mg/dL (1.6-2.6) 05/22/18 14:51 Phosphorus 2.6 mg/dL (2.5-4.9) 09/10/21 07:58 BUN 13 mg/dL (7-18) 05/09/23 07:54 Creatinine 0.81 mg/dL (0.55-1.02) 05/09/23 07:54 Glucose 93 mg/dL (74-106) 05/09/23 07:54 TSH 1.13 uIU/mL (0.358-3.74) 10/13/22 13:10 COAG PT 13.3 SECONDS (11.7-14.9) 03/23/17 11:18 Urine Test Negative Negative 03/23/17 11:18 Pre-Assessment Diagnosis/Proposed Procedure Planned Operative Procedure(s): COLONOSCOPY Anesthesia History 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 When Was Last Pacemaker Check QUESTION #4 FULL TEXT: You/Your Family Experience fever (hyperthermia) with Anesthesia Last Oral Intake Last Oral intake: Last Oral Intake NPO since 08:00 05/16/24 11:38 Meds taken in AM with sips of water? 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 Female Yes 05/11/24 11:46 HX of Motion Sickness No 05/11/24 11:46 HX of N/V After Surgery No 05/11/24 11:46 Non-Smoker Yes 05/11/24 11:46 Duration of Surgery greater No 05/11/24 11:46 than 60 minutes Number of Risk Factors 2 05/11/24 11:46 PONV Score Moderate Risk 05/11/24 11:46 Height & Weight Height & Weight: Anesthesia: Height & Weight Height 5 ft 2 in 05/16/24 11:38 Weight: 111 kg 05/16/24 11:38 Body Mass Index (BMI) 44.7 05/16/24 11:38 Respiratory Assessment Respiratory Assessment - guitar repair technician: Respiratory Tract Infection Hx - guitar repair technician Hx Respiratory Tract Infection No 05/11/24 11:46 STOP Sleep Apnea STOP Sleep Apnea - guitar repair technician: STOP Sleep Apnea - guitar repair technician Hx Hypertension No 05/11/24 11:46 Hx Sleep Apnea No 05/11/24 11:46 CPAP BIPAP Do you snore loudly (louder No 05/11/24 11:46 than talking or can be heard Do you often feel tired/ No 05/11/24 11:46 fatigued/ sleepy during daytime? Has anyone observed you stop No 05/11/24 11:46 breathing during sleep? STOP Results Negative 05/11/24 11:46 QUESTION #5 FULL TEXT : Do you snore loudly (louder than talking or can be heard through closed doors)? 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 Specify any problems Hx of Preganancy in last 3 No 05/11/24 11:46 Months Nurse Filling Out Transfusion MGRIFFVARINDER 05/11/24 11:46 & Questions: Date: 05/11/24 05/11/24 11:46 Time: 11:48 05/11/24 11:46 Patient unable to answer at this time (ie. confused, unrespo /Reproduction History /Reproductive History - guitar repair technician: /Reproductive Hx- guitar repair technician Hx Now No 05/11/24 11:46 Gestational Age (in weeks): EDC: Hx Hx Para Hx Section SAB No 05/11/24 11:46 Active Medications Active Medications: Current Medications Generic Name Dose Route Start Last Admin Trade Name Freq PRN Reason Stop Dose Admin Lactated Ringer's 1,000 mls @ 15 mls/hr 05/16/24 11:15 05/16/24 11:42 IV 15 mls/hr .Q48H ROSEANN Administration PFSH Medical History (Updated 05/11/24 @ 11:57 by Margy Butler) Wears glasses Alcohol use Low iron Non-smoker Asthma History of stress test History of echocardiogram Cardiology follow-up encounter Family hx of colon cancer Limb weakness Difficulty balancing Fatigue SOB (shortness of breath) Home Medications ?Medication ?Instructions ?Recorded ?Last Taken ?Type duloxetine 30 mg capsule,delayed 60 mg PO DAILY ANXIETY 04/30/24 Unknown History release (Cymbalta) naltrexone 8 mg-bupropion 90 mg 2 tab PO BID EATING DISORDER 4 04/30/24 Unknown Rx tablet,extended release (Contrave) weeks #120 tabs albuterol 90 mcg/actuation aerosol 90 mcg inhalation DAILY PRN PRN 05/11/24 Unknown History inhaler EXERCISE INDUCED ASTHMA Allergy/AdvReac Type Severity Reaction Status Date / Time sulfamethoxazole (From Allergy Hives Verified 05/16/24 11:38 Sept) trimethoprim (From ) Allergy Hives Verified 05/16/24 11:38 Family History (Updated 04/30/24 @ 13:30 by Leona Prado) Grandmother Breast cancer Mother Family history of ITP Diabetes Autoimmune liver disease Father CVA (cerebral vascular accident) Colon polyps Grandfather Colon cancer Brother Colon cancer Other Arthritis Surgical History Hx of hysterectomy Hx of section Gastric bypass status for obesity Social History Smoking Status: Never smoker alcohol intake: never substance use type: does not use caffeine: Yes what type of physical activity do you participate in: walking and weight training frequency: 1-2 times per week seatbelt use: always do you feel safe at home: Yes additional social history: -Dion Review of Systems (Anesthesia) ROS Narrative System reviewed and no additional complaints, except as documented.
--- NOTE | 2024-05-16 12:35 | H&P.OPEN ---
HPI - General HPI Narrative LUIZ ORBERT, is a 43 F who presents for screening colonoscopy. Patient has never had a colonoscopy in the past. She denies abdominal pain or blood in the stool. No family history of colon cancer. [facility] Medical History (Updated 05/11/24 @ 11:57 by Margy Butler) Wears glasses Alcohol use Low iron Non-smoker Asthma History of stress test History of echocardiogram Cardiology follow-up encounter Family hx of colon cancer Limb weakness Difficulty balancing Fatigue SOB (shortness of breath) Home Medications ?Medication ?Instructions ?Recorded ?Last Taken ?Type duloxetine 30 mg capsule,delayed 60 mg PO DAILY ANXIETY 04/30/24 Unknown History release (Cymbalta) naltrexone 8 mg-bupropion 90 mg 2 tab PO BID EATING DISORDER 4 04/30/24 Unknown Rx tablet,extended release (Contrave) weeks #120 tabs albuterol 90 mcg/actuation aerosol 90 mcg inhalation DAILY PRN PRN 05/11/24 Unknown History inhaler EXERCISE INDUCED ASTHMA Allergy/AdvReac Type Severity Reaction Status Date / Time sulfamethoxazole (From Allergy Hives Verified 05/16/24 11:38 Sept) trimethoprim (From Septra) Allergy Hives Verified 05/16/24 11:38 Family History (Updated 04/30/24 @ 13:30 by Leona Prado) Grandmother Breast cancer Mother Family history of ITP Diabetes Autoimmune liver disease Father CVA (cerebral vascular accident) Colon polyps Grandfather Colon cancer Brother Colon cancer Other Arthritis Surgical History Hx of hysterectomy Hx of section Gastric bypass status for obesity Social History Smoking Status: Never smoker alcohol intake: never substance use type: does not use caffeine: Yes what type of physical activity do you participate in: walking and weight training frequency: 1-2 times per week seatbelt use: always do you feel safe at home: Yes additional social history: -Doin Past Medical/Surgical History Planned Operation Planned Operative Procedure(s): COLONOSCOPY S.O.S: No Previous Hospitalizations/Surgeries HX Hospitalizations: No HX of Surgeries: gastric bypass 2014 vaginal x 1 1998 c-sec 2002, 2006 Any Problems With Anesthesia: No You/Your Family Experience Fever (Hyperthermia) With Anes: No Cholinesterase deficiency: No Cardiovascular Hx Chest Pain within Last 2 months: No Hx of Irregular Heartbeat and/or Afib: No Hx Heart Attack: No Hx Congestive Heart Failure: No Hx Rheumatic Fever: No Hx Hypertension: No Hx Internal Defibrillator: No Hx Pacemaker: No Hx Cardiac Catheterization: No Hx Cardiac Surgery/Stents/Etc.: No Hx Stress Test: Yes (STRESS TEST 2012) Hx Pain in Legs when Walking/Leg Cramps: No Respiratory Chronic Cough: No HX of Shortness of Breath: No Hoarseness: No Hx Chronic Obstructive Pulmonary Disease (COPD): No Hx Asthma: No Hx Emphysema: No Hx Sleep Apnea: No Hx Respiratory Tract Infection/Cold (presently): No Do You Snore Loudly (louder than talking or can be heard): No Do You Often Feel Tired/ Fatigued/ Sleepy Dring Daytime?: No Has Anyone Observed You Stop Breathing During Sleep?: No Result (for STOP score): Negative Smoking Status: Never smoker Gastrointestinal Hx Gastrointestinal Disorders: No (HX GASTRIC BYPASS) Hx Gastrointestinal Bleed: No Hx Ulcer: No Hx Hiatal Hernia: No Difficulty Chewing/Swallowing: No Special diet followed at home: Yes (High protein) Hx Unplanned Weight Loss of 20#: No HX Unplanned Weight Gain of 20#: No Neurological Hx Seizures: No HX Syncope/Blackout Spells/Unconsciousness: No Hx Transient Ischemic Attacks (TIA): No Hx Multiple Sclerosis: No Hx Parkinson's Disease: No Hx Head/Neck Injury: No Hx Headaches: No Hx Back Injury/Pain: No Recent Onset of Speech Difficulty: No Restless Legs: No Does patient have nerve stimulator: No Blood Disorder Hx Leukemia: No Bleeding Tendencies: No Hx Deep Vein Thrombosis: No Hx High Cholesterol: No Blood Transmitted Disease: No Hx Hepatitis: No Hx Cirrhosis: No Hx Anemia: Yes (DUE TO GASTRIC BYPASS) Hx Blood Disorders: No Reproduction : No Is Patient Lactating: No Hx Hysterectomy: No Hx Tubal Ligation: No Are You Post Menopause: No Genitourinary Hx Renal Disease: No Musculoskeletal Hx Arthritis: No Hx Rheumatoid Arthritis: No Hx Gout: No Recent Onset of an Orthopedic Problem: No Endocrine Hx Diabetes: No Thyroid Disease: No Hx Steroid Therapy: No Psycho/Social Hx Substance Use: No Hx Alcohol Use: No Hx Anxiety: Yes Hx Depression: No Mental Illness: No Hx Dementia: No Miscellaneous Hx Cancer: No Recent Exposure to Contagious Disease: No Hx of C-Diff: No Any Loose Teeth: No Allergies sulfamethoxazole (From ) Allergy (Verified 05/16/24 11:38) Hives trimethoprim (From ) Allergy (Verified 05/16/24 11:38) Hives Discharge Is Pt Admitted From a Long Term, or a Nursing Home: No Who Could Help: FAMILY After D/C, Where Do you Plan to Go: Return Home Vital Signs Vital Signs Vital Signs: 05/16/24 11:38 05/16/24 11:38 05/16/24 12:26 Temperature 98.7 F 98.7 F Temperature Source Temporal Pulse Rate 77 77 Respiratory Rate 18 18 Respiratory Pattern Normal Blood Pressure 130/87 H 130/87 H Blood Pressure Mean 101 Blood Pressure Source Monitor Blood Pressure Position Semi-Fowlers Blood Pressure Location Left Arm Pulse Ox 99 99 Oxygen Delivery Method Room Air Room Air Weight Weight: 244 lb 11.41 oz Body Mass Index (BMI) 44.7 Physical Exam Const alert and oriented x3 HEENT normocephalic Eyes PERRL Resp normal respiratory effort and normal air movement Cardio regular rate and regular rhythm GI soft to palpation, non-tender and non-distended Extremity normal to inspection Assessment & Plan Assessment/Plan (1) Encounter for screening for malignant neoplasm of colon: PLAN: I explained endoscopy in detail to the patient. I explained the risks including but not limited to stroke or heart attack with anesthesia, perforation of the GI tract, bleeding, infection. I explained that any of these could necessitate further emergency surgery. The patient understands and all questions were answered sufficiently. The patient wishes to proceed with procedure. Melquiades Ramírez MD Pager: [facility] [address] [place] [address], [address] [place] [address] Office: Surgery Risks - Colonoscopy Risks Include but are not Limited To: Risks include but are not limited to: Bleeding, perforation requiring further surgery, inability to complete colonoscopy requiring barium enema.
--- NOTE | 2024-05-16 13:11 | OP.CCLET_ITS ---
05/16/2024 Brianda Nolan [address] [place] [address] Re : Colonoscopy procedure for Missy Capellan Terry Dear Dr. Nolan This procedure was performed on Thursday, May 16, 2024. My impressions and recommendations are as follows: Impressions : - The entire examined colon is normal on direct and retroflexion views. - No specimens collected. Recommendations : - Discharge patient to home. - Resume previous diet. - Continue present medications. - Repeat colonoscopy in 10 years for screening purposes. My findings are described in the full procedure note, which is enclosed. If I can be of further assistance, please feel free to contact me at Doctor phone number(s): , Work: . Sincerely, Melquiades Ramírez MD 05/16/2024 1:11:03 PM This report has been signed electronically.
--- NOTE | 2024-05-16 13:11 | OP.COLON_ITS ---
Patient Name: Missy Stewart Procedure Date: 05/16/2024 12:36 PM Date of : 1980 Age: 43 Procedure: Colonoscopy Indications: Screening for colorectal malignant neoplasm Providers: Melquiades Ramírez MD Referring MD: Brianda Nolan Medicines: Propofol per Anesthesia Patient Profile: This is a 43 year old female. Refer to note in patient chart for documentation of history and physical. Last Colonoscopy: none. The patient's first colonoscopy is today. Complications: No immediate complications. Procedure: Pre-Anesthesia Assessment: - Prior to the procedure, a History and Physical was performed, and patient medications and allergies were reviewed. The patient's tolerance of previous anesthesia was also reviewed. The risks and benefits of the procedure and the sedation options and risks were discussed with the patient. All questions were answered, and informed consent was obtained. Prior Anticoagulants: The patient has taken no anticoagulant or antiplatelet agents. After reviewing the risks and benefits, the patient was deemed in satisfactory condition to undergo the procedure. After I obtained informed consent, the scope was passed under direct vision. Throughout the procedure, the patient's blood pressure, pulse, and oxygen saturations were monitored continuously. The Colonoscope was introduced through the anus and advanced to the cecum, identified by appendiceal orifice and ileocecal valve. The colonoscopy was performed without difficulty. The patient tolerated the procedure well. The quality of the bowel preparation was good. The ileocecal valve, appendiceal orifice, and rectum were photographed. Scope In: 12:49:14 PM Scope Withdrawal Time 0 hours 9 minutes 48 seconds Scope Out: 1:06:57 PM Total Procedure Duration Time 0 hours 17 minutes 43 seconds Findings: The entire examined colon appeared normal on direct and retroflexion views. Impression: - The entire examined colon is normal on direct and retroflexion views. - No specimens collected. Recommendation: - Discharge patient to home. - Resume previous diet. - Continue present medications. - Repeat colonoscopy in 10 years for screening purposes. Procedure Code(s): --- Professional --- 33913, Colonoscopy, flexible; diagnostic, including collection of specimen(s) by brushing or washing, when performed (separate procedure) Diagnosis Code(s): --- Professional --- Z12.11, Encounter for screening for malignant neoplasm of colon CPT copyright 2021 [employer]. All rights reserved. The codes documented in this report are preliminary and upon patient companion review may be revised to meet current compliance requirements. Melquiades Ramírez MD 05/16/2024 1:11:03 PM This report has been signed electronically. Number of Addenda: 0 Note Initiated On: 05/16/2024 12:36 PM
--- NOTE | 2024-05-16 13:13 | PCM.POST.ANE ---
Anesthesia: Postop Eval I Current Vital Signs Temperature: 97.5 F Pulse Rate: 77 Blood Pressure: 117/53 Respiratory Rate: 16 Pulse Ox: 99 Oxygen Delivery Method: Room Air Assessment Airway patent: Yes Spontaneous unlabored respirations: Yes Mental status: Awake and Calm nausea: No Vomiting: No Anesthesia Complication: No Fluid Hydration Crystalloid volume administer (ml): 500 Total IV fluid infused: 500 Progress Note Anesthesia document: Postop Eval 1 completed: Yes
--- NOTE | 2024-05-16 15:43 | PCM.POSTANE2 ---
Anesthesia Postop Eval I Sum Postop Eval Completion status Anesthesia document: Postop Eval 1 completed: Yes Anesthesia Postop Eval I Summary Anesthesia Postop Eval I Summary: Anesthesia Postop Eval I: Assessment Summary Airway patent Yes 05/16/24 13:16 [email or web address] Spontaneous unlabored Yes 05/16/24 13:16 [email or web address] respirations Mental status Awake,Calm 05/16/24 13:16 [email or web address] nausea No 05/16/24 13:16 [email or web address] Vomiting No 05/16/24 13:16 [email or web address] Anesthesia Postop Eval I: Fluid Summary Crystalloid volume administer 500 05/16/24 13:16 [email or web address] (ml) Colloids volume administered ( ml) Blood Product volume administered (ml) Total IV fluid infused 500 05/16/24 13:16 [email or web address] Anesthesia Postop Eval I: Summary Notes Anesthesia Complication No 05/16/24 13:16 [email or web address] Anesthesia Complication Comment: Post-operative progress note Anesthesia: Postop Eval II Evaluation Mental status: Awake and Calm Pain Level: 0 nausea: No Vomiting: No Complications Anesthesia Complication: No
== END 2024-05-16 13:39 | disposition home or self-care (01) ==
LOC: EN 11:03 → AC 11:08
PROVIDERS: PCP Family Medicine; Referring Provider Family Medicine; Visit Provider Surgery
PROC: 0DJD8ZZ Inspection of Lower Intestinal Tract, Via Natural or Artificial Opening Endoscopic (ICD-10-PCS; CPT 45378; principal; 2024-05-16 12:25)
DX: Z12.11 Encounter for screening for malignant neoplasm of colon (principal); Z80.0 Family history of malignant neoplasm of digestive organs; Z90.710 Acquired absence of both cervix and uterus
CPT/HCPCS: 45378; J7120; J2405

== ENCOUNTER → 2024-06-25 | Outpatient (CLI) | payer OTHER, SELFPAY ==
--- NOTE | 2024-06-25 07:49 | BI_ITS ---
MAMMOGRAPHY - BILATERAL SCREENING REASON FOR EXAM: Female, 43 years old. Routine annual screening examination. PERTINENT HISTORY: Non-contributory. TECHNIQUE: Digital bilateral breast tim (3D mammographic acquisition) in the CC and MLO projections. 2-D mediolateral oblique (MLO) and craniocaudad (CC) views of both breasts were obtained. CAD: Full Field Digital Mammography with Computer Added Detection was performed. COMPARISON: Comparison is made with prior study April 20, 2023 and March 08, 2022. FINDINGS: Breast Composition: The breasts are heterogeneously dense, which may obscure small masses. There are no dominant masses or suspicious calcifications. Stable benign-appearing bilateral axillary lymph nodes. No other significant abnormalities are identified. There has been no significant change since the prior study. BI/SCRN MAMM (CAD)W/TIM BILAT IMPRESSION: Stable bilateral screening mammogram. Yearly follow-up mammogram recommended. (A) ASSESSMENT CATEGORY: BIRADS Category 2: Benign. A letter regarding these results will be sent to the patient by the facility within 30 days. Approximately 10% of breast cancers are not detected by mammography. A normal mammogram should not delay biopsy of a clinically suspicious abnormality. [id number] Electronically Signed: Casimiro Mcarthur MD at 9:10 EDT ,
== END | disposition home or self-care (01) ==
LOC: OPBI 07:47
PROVIDERS: PCP Family Medicine; Referring Provider Nurse Practitioner Family; Visit Provider Nurse Practitioner Family
DX: Z12.31 Encounter for screening mammogram for malignant neoplasm of breast (principal)
CPT/HCPCS: 77063; 77067

== ENCOUNTER 2024-09-20 05:53 | Day surgery (SDC) | payer OTHER, SELFPAY ==
[2024-08-21 09:24] LABS: Absolute Lymphocyte Count 2.63 X10^3/uL (0.83-4.51); Absolute Neutrophil Count 3.3 X10^3/uL (2.0-7.7); Basophil# 0.06 X10^3/uL; Basophil% 0.9 % (0-1); Eosinophil# 0.28 X10^3/uL; Eosinophils% 4.1 % (0-5); Hematocrit 44.3 % (37-47); Hemoglobin 13.9 g/dL (12.0-15.0); Lymphocyte # 2.63 X10^3/ul (0.83-4.51); Mean Corp Hgb Conc 31.4 g/dL (32-36); Mean Corpuscular Volume 82.8 fL (81-99); Mean Platelet Vol. 11.7 fl (6.2-12.0); Monocyte# 0.44 X10^3/uL; Monocyte% 6.5 % (0-10); NRBC Flagged by Analyzer 0 % (0-5); Neutrophil # 3.32 X10^3/uL (2.7-7.7); Neutrophil % 49.2 % (47-70); Platelet Count 271 K/mm3 (150-450); RBC Distribution Width CV 14.6 % (11.6-14.6); Red Blood Count 5.35 M/mm3 (4.2-5.4); White Blood Count 6.8 K/mm3 (4.4-11.0)
[2024-08-21 14:54] LABS: Anion Gap 5 (5-15); BUN 14 mg/dL (7-18); Calcium,Total 9.3 mg/dL (8.5-10.1); Chloride 107 mmol/L (98-107); Creatinine, Serum 0.74 mg/dL (0.55-1.02); EST Glomerular Filtration Rate 90 mL/min (>60); Est Glom Filt Rate - Afr Amer 109 mL/min (>60); Glucose 99 mg/dL (74-106); Potassium 4.3 mmol/L (3.5-5.1); Sodium Level 140 mmol/L (136-145)
[2024-09-19 12:37] LABS: International Normalized Ratio 0.9; Prothrombin Time (Protime)PT. 12.4 SECONDS (11.7-14.9)
[2024-09-19 12:38] LABS: Partial Thromboplast Time 23.8 Seconds (24.1-36.2)
[2024-09-20] VITALS (9 sets, daily range): BP systolic 121–140; BP diastolic 68–88; PULSE 87–120; RESP 16–18; TEMP 36.1–36.8; O2SAT 94–99; BMI 45.9
--- NOTE | 2024-09-20 | BR_PTH ---
PATIENT: LUIZ SAWYER LOC: [facility] [place] U#:[id number] AGE/SX: 44/F ROOM: RE09/20/[address]: Dr. Belle Gann MD : 1980 BED: DIS: 09/20/2024 SPEC #: [id number] RECD: 09/20/24 13:59 STATUS: JOE REQ #: [id number] YOHANA: 09/20/24 00:[address]: Belle Gann DEPT: SURGICAL PATHOLOGY RECD BY: Federico Ruff ENTERED: 09/21/24 09:14 SP TYPE: MAMOPLASTY OTHR DR: MD Dr. Brianda Barry DO Tissues: A - Right breast, NOS B - Left breast, NOS Procedures: Surgery Specimen Level IV HEADER OPERATION: Bilateral breast reduction PRE-OP DIAGNOSIS: Intertigo, chronic back pain, breast hypertrophy TISSUE SUBMITTED: A- Left breast tissue - 784gm, B- Right breast tissue - 936gm MICROSCOPIC DIAGNOSIS A. Left breast tissue, breast reduction mammoplasty: Benign breast tissue with focal ductal dilatation. Skin- no pathologic diagnosis. B. Right breast tissue, breast reduction mammoplasty: Benign breast tissue with focal ductal dilatation. Skin- no pathologic diagnosis. JANNETH/ 09/24/2024 MICROSCOPIC DESCRIPTION Slides are reviewed. GROSS DESCRIPTION A - Received in fixative is one container labeled with the patient's name and designated Left breast tissue, 784gm. The specimen consists of multiple pieces of fibroadipose tissue with a few of the pieces showing huerta-white skin, measuring in aggregate 26.0 x 20.0 x 6.0 cm. No skin lesion is identified. Sections reveal yellow adipose cut surfaces mixed with scant fibrous areas. No mass lesion is identified. Home Health Care Case Manager sections are submitted in six cassettes. Cassette 1 contains the skin piece. B - Received in fixative is one container labeled with the patient's name and designated Right breast tissue, 936gm. The specimen consists of multiple pieces of fibroadipose tissue with a few of the pieces showing huerta-white skin, measuring in aggregate 23.0 x 22.0 x 8.0 cm. No skin lesion is identified. Sections reveal yellow adipose cut surfaces mixed with scant fibrous areas. No mass lesion is identified. Home Health Care Case Manager sections are submitted in six cassettes. Cassette 1 contains the skin piece. / JANNETH: 09/21/2024 TC:5 CPT:63294q7
[2024-09-20] MEDS: Lactated Ringers 1,000 ML 15 ML IV (06:19)
--- NOTE | 2024-09-20 06:42 | PCM.PRE.AN2 ---
ASA Classification* ASA Classification ASA Classification: 2 Assessment & Plan Anesthesia* Anesthesia Assessment Anesthesia Assessment: Discussed sedation and/or anesthesia options, risks, benefits, and alternatives with patient/parents/legal guardian/POA. Questions invited. The patient/parents/legal guardian/POA seems to understand and agrees to proceed with anesthesia plan. Reviewed the physical assessment, medical history, allergy history and patient home medications list prior to surgery/procedure/anesthetic and documented any changes. Performed airway and anesthesia risk assessments. Anesthesia Type Anesthesia Type: General Anesthesia Focused Assessment* Temperature: 97.2 F Pulse Rate: 94 Blood Pressure: 129/82 Respiratory Rate: 16 Pulse Ox: 97 Airway Assessment Mouth opens: >3 cm Mallampati Score: II Focused Labs Anesthesia Preop lab: CBC WBC 7.1 K/mm3 (4.4-11.0) 08/21/24 08:25 RBC 5.34 M/mm3 (4.2-5.4) 08/21/24 08:25 Hgb 13.8 g/dL (12.0-15.0) 08/21/24 08:25 Hct 44.1 % (37-47) 08/21/24 08:25 Plt Count 253 K/mm3 (150-450) 08/21/24 08:25 CHEMISTRY Potassium 4.3 mmol/L (3.5-5.1) 08/21/24 08:25 Sodium 140 mmol/L (136-145) 08/21/24 08:25 Magnesium 1.9 mg/dL (1.6-2.6) 05/22/18 14:51 Phosphorus 2.3 mg/dL (2.5-4.9) L 08/21/24 08:25 BUN 13 mg/dL (7-18) 08/21/24 08:25 Creatinine 0.76 mg/dL (0.55-1.02) 08/21/24 08:25 Glucose 98 mg/dL (74-106) 08/21/24 08:25 TSH 1.13 uIU/mL (0.358-3.74) 10/13/22 13:10 COAG PT 12.4 SECONDS (11.7-14.9) 09/19/24 12:18 Urine Test Negative Negative 03/23/17 11:18 Pre-Assessment Diagnosis/Proposed Procedure Planned Operative Procedure(s): BILAT BREAST REDUCTION Anesthesia History Anesthesia History - wood stock blank handler: Anesthesia History - wood stock blank handler Hx Hospitalization No 08/27/24 08:50 Any Problems With Anesthesia No 08/27/24 08:50 Cholinesterase deficiency No 08/27/24 08:50 You/Your Family Experience No 08/27/24 08:50 fever (hyperthermia) with Relationship Recent Exposure to Contagious No 09/20/24 06:13 Disease Does patient have nerve No 08/27/24 08:50 stimulator Patient instructed to have device shut off --Does patient have Pacemaker No 09/20/24 06:13 or ICD? When Was Last Pacemaker Check QUESTION #4 FULL TEXT: You/Your Family Experience fever (hyperthermia) with Anesthesia Last Oral Intake Last Oral intake: Last Oral Intake NPO since 23:00 09/20/24 06:13 Meds taken in AM with sips of water? Meds patient instructed to take am of surgery PONV PONV - wood stock blank handler: PONV - wood stock blank handler Female Yes 08/27/24 08:50 HX of Motion Sickness No 08/27/24 08:50 HX of N/V After Surgery No 08/27/24 08:50 Non-Smoker Yes 08/27/24 08:50 Duration of Surgery greater Yes 08/27/24 08:50 than 60 minutes Number of Risk Factors 3 08/27/24 08:50 PONV Score Moderate Risk 08/27/24 08:50 Height & Weight Height & Weight: Anesthesia: Height & Weight Height 5 ft 2 in 09/20/24 06:13 Weight: 114 kg 09/20/24 06:13 Body Mass Index (BMI) 45.9 09/20/24 06:13 Respiratory Assessment Respiratory Assessment - wood stock blank handler: Respiratory Tract Infection Hx - wood stock blank handler Hx Respiratory Tract Infection No 08/27/24 08:50 STOP Sleep Apnea STOP Sleep Apnea - wood stock blank handler: STOP Sleep Apnea - wood stock blank handler Hx Hypertension No 08/27/24 08:50 Hx Sleep Apnea No 08/27/24 08:50 CPAP BIPAP Do you snore loudly (louder No 08/27/24 08:50 than talking or can be heard Do you often feel tired/ No 08/27/24 08:50 fatigued/ sleepy during daytime? Has anyone observed you stop No 08/27/24 08:50 breathing during sleep? STOP Results Negative 08/27/24 08:50 QUESTION #5 FULL TEXT : Do you snore loudly (louder than talking or can be heard through closed doors)? 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 Specify any problems Hx of Preganancy in last 3 No 08/27/24 08:50 Months Nurse Filling Out Transfusion DSCHRIBER 08/27/24 08:50 & Questions: Date: 08/27/24 08/27/24 08:50 Time: 08:51 08/27/24 08:50 Patient unable to answer at this time (ie. confused, unrespo /Reproduction History /Reproductive History - wood stock blank handler: /Reproductive Hx- wood stock blank handler Hx Now No 08/27/24 08:50 Gestational Age (in weeks): EDC: Hx Hx Para Hx Section SAB No 08/27/24 08:50 Active Medications Active Medications: Current Medications Generic Name Dose Route Start Last Admin Trade Name Freq PRN Reason Stop Dose Admin Lactated Ringer's 1,000 mls @ 15 mls/hr 09/20/24 06:15 09/20/24 06:19 IV 09/25/24 19:34 15 mls/hr .Q48H ROSEANN Administration Protocol Cefazolin Sodium 2 gm/ N/A 20 mls @ 400 mls/hr 09/20/24 07:00 IV 09/20/24 07:02 PREOP ONE PFSH Medical History (Updated 08/27/24 @ 08:57 by Janis Montaño) Anxiety Easy bruising Syncope Dietary restriction Wears glasses Non-smoker Asthma History of stress test History of echocardiogram Cardiology follow-up encounter Family hx of colon cancer Home Medications ?Medication ?Instructions ?Recorded ?Last Taken ?Type duloxetine 30 mg capsule,delayed 60 mg PO DAILY ANXIETY 04/30/24 Unknown History release (Cymbalta) albuterol 90 mcg/actuation aerosol 90 mcg inhalation DAILY PRN PRN 05/11/24 09/20/24 History inhaler EXERCISE INDUCED ASTHMA methylphenidate HCl 10 mg tablet 10 mg PO DAILY 08/27/24 Unknown History (Ritalin) cephalexin 500 mg capsule 500 mg PO BID #14 caps 08/28/24 Unknown Rx Allergy/AdvReac Type Severity Reaction Status Date / Time sulfamethoxazole (From Allergy Hives Verified 09/20/24 06:12 Sept) trimethoprim (From ) Allergy Hives Verified 09/20/24 06:12 Family History Grandmother Breast cancer Mother Family history of ITP Diabetes Autoimmune liver disease Father CVA (cerebral vascular accident) Colon polyps Grandfather Colon cancer Brother Colon cancer Other Arthritis Surgical History (Updated 08/27/24 @ 08:57 by Janis Montaño) Hx laparoscopic cholecystectomy Hx of hysterectomy Hx of section Gastric bypass status for obesity Social History Smoking Status: Never smoker alcohol intake: never substance use type: does not use caffeine: Yes what type of physical activity do you participate in: walking and weight training frequency: 1-2 times per week seatbelt use: always do you feel safe at home: Yes additional social history: -Dion pt denies vaping, denies marijuana use, denies edibles, denies aspirin and ibuprofen use. Review of Systems (Anesthesia) ROS Narrative System reviewed and no additional complaints, except as documented.
--- NOTE | 2024-09-20 07:24 | PCM.HP.BLA ---
History and Physical Date of Admission: 09/20/24 The patient is examined and there are no changes to the H&P dated 08/28/24. Informed consent obtained for bilateral breast reduction. She is marked prior to surgery. Assessment & Plan Assessment/Plan (1) Intertrigo: (2) Chronic back pain: (3) Breast hypertrophy: PLAN: Plan Patient for bilateral breast reduction.
[2024-09-20] MEDS: Cefazolin 2 GM in Syringe IV (07:35)
[2024-09-20] MEDS: Gentamicin 80 MG/2 ML Vial (08:08)
[2024-09-20] MEDS: EPINEPHrine Nasal 0.1% 30 ML Bottle OPERA.SITE (08:08)
[2024-09-20] MEDS: Methylene Blue 1% 100 MG/10 ML VIAL (08:08)
[2024-09-20] MEDS: Bupivacaine 0.25% 30 ML Vial (13:16)
--- NOTE | 2024-09-20 13:32 | EX.PCM.DISCH ---
Discharge Instructions Dressing / Incision Additional Dressing/Incision Instructions:: Follow the instructions given in the office. Keep your back elevated. Use the incentive spirometer every hour while awake. Follow Up Care Please Follow Up With: Belle Gann MD When: Next week Test Results: Test results from this visit will be discussed in further detail at your follow-up appointment, if applicable. Discharge Plan Admission Attending Provider: Belle Gann Primary Care Provider: Brianda Nolan Consulting Providers: Nathen Hogan Instructions Print Language: Telugu Discharge Orders/Prescriptions Prescriptions: No Action duloxetine [Cymbalta] 30 mg capsule,delayed release(DR/EC) 60 mg PO DAILY cephalexin 500 mg capsule 500 mg PO BID Qty: 14 0RF albuterol 90 mcg/actuation aerosol 90 mcg inhalation DAILY PRN PRN (Reason: EXERCISE INDUCED ASTHMA) methylphenidate HCl [Ritalin] 10 mg tablet 10 mg PO DAILY Referrals / Follow Up: Brianda Nolan DO [Primary Care Provider] - Disposition Disposition (needs filled in before D/C Order can be placed): Home, Self Care
--- NOTE | 2024-09-20 13:39 | PCM.OPRPT ---
Problems Associated Problem List Diagnoses (1) Intertrigo: (2) Chronic back pain: (3) Breast hypertrophy: Operative Report (Standard) Operative Information Surgery/Procedure Performed: Bilateral breast reduction (right?936 g; left?784 grams) Surgeon: Belle Gann Date of Procedure: 09/20/24 Procedure Start Time: 08:08 Procedure Stop Time: 13:28 Pre-Operative Diagnosis: Bilateral breast hypertrophy; Chronic back pain Post-Operative Diagnosis: Same Select all DRAINS/GRAFTS/IMPLANTS that apply: None Type of Anesthesia: General Estimated Blood Loss: 50 cc Specimen collected: Yes Description of specimen(s) removed: Bilateral breast tissue Description of surgery: The patient presents today for bilateral breast reduction. The procedure been thoroughly reviewed with the patient including the expected pre-, intra-, postoperative course. An informed consent was obtained. The patient was marked in the preop holding area. No guarantees as to the final size were made. The patient is brought to the operating room and placed under general anesthesia in the supine position. Care is taken to pad all pressure points, apply a warming blanket, sequential compression stockings, and a Lopez catheter. The breast are prepped and draped in the usual sterile fashion. We initially began with incising all the incisions. Following this, the pedicle is de-epithelialized. The medial and lateral inferior aspects of the breast are then removed using argon coagulation. The pedicle is then from the upper flap and dissection continued cephalad maintaining at least 2 cm in thickness of the upper flap. Following this, the pedicle is trimmed in order to allow to comfortably fit beneath the upper flap. The wound is then irrigated with antibiotic solution and checked for hemostasis meticulously. The breast is then infolded and tacked together using silk suture and skin clips. With a satisfactory size and shape noted, would begin to close the incisions. [id number] Vicryl sutures are used in the deep subcutaneous tissue. Following this, a STRATAFIX suture is used to approximate the tissue in 3 layers. Approximately 5 cm above the inframammary crease, an opening is made for the nipple areola and this is brought out to the skin level. This is tacked in place with interrupted nylon suture. All skin edges are then approximated with a running subcuticular strata fix suture. The identical procedure was performed on the opposite side. All removed tissue is weighed and sent to pathology for permanent section. The patient tolerated the procedure well and was taken to the recovery area in an awakening in stable condition. Needle and sponge counts are correct. 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
--- NOTE | 2024-09-20 13:40 | PCM.POST.ANE ---
Anesthesia: Postop Eval I Current Vital Signs Temperature: 97.7 F Pulse Rate: 108 Blood Pressure: 124/71 Respiratory Rate: 16 Pulse Ox: 97 Oxygen Delivery Method: Room Air Assessment Airway patent: Yes Spontaneous unlabored respirations: Yes Mental status: Awake and Calm nausea: No Vomiting: No Anesthesia Complication: No Fluid Hydration Crystalloid volume administer (ml): 1,900 Total IV fluid infused: 1,900 Progress Note Anesthesia document: Postop Eval 1 completed: Yes
--- NOTE | 2024-09-20 14:40 | POSTOPAN2_ITS ---
Anesthesia Postop Eval I Sum Postop Eval Completion status Anesthesia document: Postop Eval 1 completed: Yes Anesthesia Postop Eval I Summary Anesthesia Postop Eval I Summary: Anesthesia Postop Eval I: Assessment Summary Airway patent Yes 09/20/24 13:41 [email or web address] Spontaneous unlabored Yes 09/20/24 13:41 [email or web address] respirations Mental status Awake,Calm 09/20/24 13:41 [email or web address] nausea No 09/20/24 13:41 [email or web address] Vomiting No 09/20/24 13:41 [email or web address] Anesthesia Postop Eval I: Fluid Summary Crystalloid volume administer 1,900 09/20/24 13:41 [email or web address] (ml) Colloids volume administered ( ml) Blood Product volume administered (ml) Total IV fluid infused 1,900 09/20/24 13:41 [email or web address] Anesthesia Postop Eval I: Summary Notes Anesthesia Complication No 09/20/24 13:41 [email or web address] Anesthesia Complication Comment: Post-operative progress note Anesthesia: Postop Eval II Evaluation Mental status: Awake Pain Level: 0 nausea: No Vomiting: No
--- NOTE | 2024-09-20 14:40 | PCM.POSTANE2 ---
Anesthesia Postop Eval I Sum Postop Eval Completion status Anesthesia document: Postop Eval 1 completed: Yes Anesthesia Postop Eval I Summary Anesthesia Postop Eval I Summary: Anesthesia Postop Eval I: Assessment Summary Airway patent Yes 09/20/24 13:41 [email or web address] [email or web address] Spontaneous unlabored Yes 09/20/24 13:41 [email or web address] [email or web address] respirations Mental status Awake,Calm 09/20/24 13:41 [email or web address] [email or web address] nausea No 09/20/24 13:41 [email or web address] [email or web address] Vomiting No 09/20/24 13:41 [email or web address] Anesthesia Postop Eval I: Fluid Summary Crystalloid volume administer 1,900 09/20/24 13:41 [email or web address] (ml) Colloids volume administered ( ml) Blood Product volume administered (ml) Total IV fluid infused 1,900 09/20/24 13:41 [email or web address] [email or web address] Anesthesia Postop Eval I: Summary Notes Anesthesia Complication No 09/20/24 13:41 [email or web address] Anesthesia Complication Comment: Post-operative progress note Anesthesia: Postop Eval II Evaluation Mental status: Awake Pain Level: 0 nausea: No Vomiting: No
[2024-09-20] MEDS: Acetaminophen 325 MG Tablet 650 MG PO (15:11)
== END 2024-09-20 16:10 | disposition home or self-care (01) ==
LOC: SDC 05:53 → AC 05:54
PROVIDERS: Anesthesiology; PCP Family Medicine; Referring Provider Plastic Surgery; Visit Provider Plastic Surgery
PROC: 0H0U0ZZ Alteration of Left Breast, Open Approach (ICD-10-PCS; CPT 19318; principal; 2024-09-20 07:15)
DX: L30.4 Erythema intertrigo (principal); M54.9 Dorsalgia, unspecified; G89.29 Other chronic pain; N62 Hypertrophy of breast; Z90.49 Acquired absence of other specified parts of digestive tract; Z98.84 Bariatric surgery status; Z90.710 Acquired absence of both cervix and uterus; F41.9 Anxiety disorder, unspecified; F98.8 Other specified behavioral and emotional disorders with onset usually occurring in childhood and adolescence
CPT/HCPCS: 19318; 00402; 36415; 80048; 85025; 85610; 85730; 88305; J7120; J2405

== ENCOUNTER → 2025-08-06 | Outpatient (CLI) | payer OTHER, SELFPAY ==
--- NOTE | 2025-08-06 10:56 | BI_ITS ---
EXAM: SCRN MAMM (CAD)W/TIM BILAT DATE: 08/06/2025 CLINICAL HISTORY: F, Age 44 y/o , SCREENING No family history. History of prior bilateral breast reduction surgery. TECHNIQUE: Procedure Code: [id number] Modality: MG Procedure: SCRN MAMM (CAD)W/TIM BILAT COMPARISON: Prior exam(s) dated June 25, 2024.. FINDINGS: TISSUE DENSITY: The breasts are heterogeneously dense, which may obscure small masses. Bilateral Breast Mammographic Findings: No significant masses, calcifications or other abnormalities are identified. Stable bilateral fat containing axillary lymph nodes. No suspicious masses, areas of developing architectural distortion, or suspicious calcifications. There has been no significant interval change. BI/SCRN MAMM (CAD)W/TIM BILAT IMPRESSION: Stable bilateral screening mammogram. OVERALL FINAL ASSESSMENT BI-RADS 2: BENIGN RECOMMENDATION: Routine annual follow-up in 1 Year A letter with findings and recommendations will be mailed to the patient. Reading Location: [place] [id number]
== END | disposition home or self-care (01) ==
PROVIDERS: PCP Family Medicine; Referring Provider Family Medicine; Visit Provider Family Medicine
DX: Z12.31 Encounter for screening mammogram for malignant neoplasm of breast (principal)
CPT/HCPCS: 77063; 77067

== ENCOUNTER → 2025-09-23 | Outpatient (CLI) | payer OTHER, SELFPAY ==
[2025-09-23 13:58] LABS: Ferritin 23 ng/mL (22-378)
[2025-09-23 14:35] LABS: FOLATES,SERUM (FOLIC ACID) 20.80 ng/mL (4.60-34.80)
[2025-09-23 15:01] LABS: Iron 71 ug/dL (50-170); Iron Binding Capacity,Total 365 ug/dL (250-450); Iron Binding Capacity,Unsat 294 ug/dL (228-428)
[2025-09-26 09:09] LABS: Copper, Serum or Plasma 107 ug/dL (80-158)
== END | disposition home or self-care (01) ==
LOC: LAB 12:30
PROVIDERS: PCP Family Medicine; Referring Provider Family Medicine; Visit Provider Family Medicine
DX: E53.8 Deficiency of other specified B group vitamins (principal); Z98.84 Bariatric surgery status; E61.1 Iron deficiency; Z51.81 Encounter for therapeutic drug level monitoring
CPT/HCPCS: 36415; 82525; 82728; 82746; 83540; 83550